=== PATIENT | female | born 1950 | race Caucasian/White ===

== ENCOUNTER 2016-09-19 06:33 | Day surgery (SDC) | payer OTHER, MEDICAID ==
[2016-09-19] MEDS ORDERED: TETRACAINE 0.5% OPHTH 1 DOSE AFFEYE ONE ×2 (07:17→09:42)
[2016-09-19] MEDS ORDERED: VIGAMOX 0.5% OPHTH 1 DOSE AFFEYE ONE ×5 (07:20→10:09)
[2016-09-19] MEDS ORDERED: PROLENSA OPHTH 1 DOSE AFFEYE ONE (07:32)
[2016-09-19] MEDS ORDERED: ALPHAGAN-P OPHTH 1 DOSE AFFEYE ONE (07:33)
[2016-09-19] MEDS ORDERED: AK-DILATE 2.5% OPHTH 1 DOSE OP ONE ×2 (07:35→07:37)
[2016-09-19] MEDS ORDERED: CYCLOGYL 1% OPHTH 1 DOSE OP ONE ×2 (07:35→07:37)
[2016-09-19] MEDS ORDERED: MYDRIACIL OPHTH 1 DOSE AFFEYE ONE ×2 (07:35→07:37)
[2016-09-19] MEDS ORDERED: NS 500 ML IV 500 ML IV ONE (07:45)
[2016-09-19] MEDS ORDERED: BETADINE OPHTH SOLN 5% EACHEYE ONE (09:42)
[2016-09-19] MEDS ORDERED: XYLOCAINE-MPF 1% IJ ONE ×2 (09:45→09:53)
[2016-09-19] MEDS ORDERED: DUOVISC IO ONE ×2 (09:45→09:53)
[2016-09-19] MEDS ORDERED: ADRENALINE CHL INJ IJ ONE ×2 (09:45→09:53)
[2016-09-19] MEDS ORDERED: BSS OPHTH (PLAIN) 500 ML with VANCOMYCIN HCL 500 MG VIAL 25 MG, ADRENALINE CHL INJ 1 MG IR ONE ×6 (09:46)
[2016-09-19] MEDS ORDERED: VERSED ONE (10:33)
[2016-09-19] MEDS ORDERED: DIPRIVAN VIAL ONE (10:33)
[2016-09-19 11:10] VITALS: BP 132/60
== END 2016-09-19 10:35 | disposition home or self-care (01) ==
LOC: SURG1 06:33
PROVIDERS: ATTEND Ophthalmology
PROC: 08RJ3JZ Replacement of Right Lens with Synthetic Substitute, Percutaneous Approach (ICD-10-PCS; principal; 2016-09-19 09:00)
PROC: 08DJ3ZZ Extraction of Right Lens, Percutaneous Approach (ICD-10-PCS; principal; 2016-09-19 09:00)
DX: H25.11 Age-related nuclear cataract, right eye (principal); H25.011 Cortical age-related cataract, right eye; H25.041 Posterior subcapsular polar age-related cataract, right eye
CPT/HCPCS: A4222; A4217; J0170; J2250; J3370; J3490

== ENCOUNTER 2016-10-10 08:41 | Day surgery (SDC) | payer OTHER, MEDICAID ==
[~2016-10-10 08:41] MED LIST: AK-DILATE 2.5% OPHTH 1 DOSE OP ONE; CYCLOGYL 1% OPHTH 1 DOSE OP ONE; DUREZOL OPHTH 1 DOSE AFFEYE ONE; MYDRIACIL OPHTH 1 DOSE AFFEYE ONE; PROLENSA OPHTH 1 DOSE AFFEYE ONE; VIGAMOX 0.5% OPHTH 1 DOSE AFFEYE ONE
[2016-10-10] MEDS ORDERED: DIPRIVAN VIAL ONE (09:37)
[2016-10-10] MEDS ORDERED: VERSED ONE (09:37)
[2016-10-10] MEDS ORDERED: KETALAR ONE ×2 (09:45→13:30)
[2016-10-10] MEDS ORDERED: NS 500 ML IV 500 ML IV ONE (09:58)
[2016-10-10] MEDS ORDERED: TETRACAINE 0.5% OPHTH 1 DOSE AFFEYE ONE ×3 (10:12→14:30)
[2016-10-10] MEDS ORDERED: VIGAMOX 0.5% OPHTH 1 DOSE AFFEYE ONE ×6 (10:13→14:43)
[2016-10-10] MEDS ORDERED: PROLENSA OPHTH 1 DOSE AFFEYE ONE (10:24)
[2016-10-10] MEDS ORDERED: ALPHAGAN-P OPHTH 1 DOSE AFFEYE ONE (10:25)
[2016-10-10] MEDS ORDERED: MYDRIACIL OPHTH 1 DOSE AFFEYE ONE ×4 (10:26→10:29)
[2016-10-10] MEDS ORDERED: CYCLOGYL 1% OPHTH 1 DOSE OP ONE ×4 (10:26→10:29)
[2016-10-10] MEDS ORDERED: AK-DILATE 2.5% OPHTH 1 DOSE OP ONE ×4 (10:26→10:29)
[2016-10-10] MEDS ORDERED: BETADINE OPHTH SOLN 5% EACHEYE ONE (14:15)
[2016-10-10] MEDS ORDERED: XYLOCAINE-MPF 1% IJ ONE ×2 (14:30→14:31)
[2016-10-10] MEDS ORDERED: DUOVISC IO ONE ×2 (14:30→14:31)
[2016-10-10] MEDS ORDERED: ADRENALINE CHL INJ IJ ONE ×2 (14:30)
[2016-10-10] MEDS ORDERED: BSS OPHTH (PLAIN) 500 ML with VANCOMYCIN HCL 500 MG VIAL 25 MG, ADRENALINE CHL INJ 1 MG IR ONE ×9 (14:31)
[2016-10-10 17:15] VITALS: BP 153/67
== END 2016-10-10 15:10 | disposition home or self-care (01) ==
LOC: SURG1 08:41
PROVIDERS: ATTEND Ophthalmology
PROC: 08DK3ZZ Extraction of Left Lens, Percutaneous Approach (ICD-10-PCS; principal; 2016-10-10 18:30)
PROC: 08RK3JZ Replacement of Left Lens with Synthetic Substitute, Percutaneous Approach (ICD-10-PCS; principal; 2016-10-10 18:30)
DX: H25.12 Age-related nuclear cataract, left eye (principal); H25.012 Cortical age-related cataract, left eye; H25.042 Posterior subcapsular polar age-related cataract, left eye
CPT/HCPCS: A4217; J0170; J2250; J3370; J3490